=== PATIENT | female | born 1985 | race Caucasian/White ===

== ENCOUNTER 2023-06-30 05:50 | Day surgery (SDC) | payer OTHER ==
[~2023-06-30] VITALS: Ht 160 cm; Wt 68.9 kg
[2023-06-30 07:22] VITALS: O2SAT 98
[2023-06-30 07:24] LABS: HCG,QUAL RESULT NEGATIVE (NEGATIVE)
[2023-06-30] MEDS ORDERED: KETOROLAC TROMETHAMINE 30 MG VIAL ONE (07:54)
[2023-06-30] MEDS ORDERED: ROCURONIUM BROMIDE 10 MG/ML (ZEMURON) ONE (07:54)
[2023-06-30] MEDS ORDERED: OXYMETAZOLINE HCL 0.05% NASAL SPRAY NS ONE (07:54)
[2023-06-30] MEDS ORDERED: NS IRRIG SOLN 1000 ML IR ONE (07:54)
[2023-06-30] MEDS ORDERED: LIDOCAINE/EPI 1% 1:100000 20 ML VIAL ONE (07:54)
[2023-06-30] MEDS ORDERED: MUPIROCIN 2% TOPICAL OINTMENT 22 GM ONE (07:54)
[2023-06-30] MEDS ORDERED: DEXAMETHASONE SOD PHOSPHATE 4 MG/ML VIAL ONE (07:54)
[2023-06-30] MEDS ORDERED: SUCCINYLCHOLINE CHLORIDE 20 MG/ML(QUELICIN) ONE (07:54)
[2023-06-30] MEDS ORDERED: PHENYLEPHRINE HCL 10 MG/ML VIAL (NEOSYNEPHRINE) ONE (07:54)
[2023-06-30] MEDS ORDERED: LR 1,000 ML IV.SOLN IV ONE (07:54)
[2023-06-30] MEDS ORDERED: ONDANSETRON HCL 4 MG/2 ML VIAL ONE (07:54)
[2023-06-30] MEDS ORDERED: GLYCOPYRROLATE 0.2 MG/ML VIAL ONE (07:54)
[2023-06-30] MEDS ORDERED: PROPOFOL 200MG/ 20ML VIAL (DIPRIVAN) IV ONE (07:54)
[2023-06-30] MEDS ORDERED: METOCLOPRAMIDE HCL 10 MG/2 ML VIAL ONE (07:54)
[2023-06-30] MEDS ORDERED: SEVOFLURANE 15 MIN GAS INH ONE (07:54)
[2023-06-30] MEDS ORDERED: MIDAZOLAM HCL 2 MG/2 ML VIAL (VERSED) ONE ×2 (07:54→11:31)
[2023-06-30] MEDS ORDERED: ePHEDrine sulfate 50 MG/ML VIAL ONE (07:54)
[2023-06-30] MEDS ORDERED: WATER FOR IRRIGATION,STERILE 1,000 ML IRRIG.SOLN IR ONE (07:54)
[2023-06-30] MEDS ORDERED: NEOSTIGMINE METHYLSULFATE 1 MG/ML, 10 ML VIAL ONE (07:54)
[2023-06-30] MEDS ORDERED: fentaNYL CITRATE/PF 100 MCG/2 ML AMP ONE (07:54)
[2023-06-30] MEDS ORDERED: LR 500 ML IV SCH (09:00)
[2023-06-30] MEDS ORDERED: NALOXONE HCL 0.4 MG/ML AMP (NARCAN) IVP PRN (09:00)
[2023-06-30] MEDS ORDERED: MEPERIDINE HCL/PF 25 MG/ML DISP.SYRIN IVP PRN (09:00)
[2023-06-30] MEDS ORDERED: KETOROLAC TROMETHAMINE 30 MG VIAL IVP PRN (09:00)
[2023-06-30] MEDS ORDERED: LR 1,000 ML IV SCH (09:00)
[2023-06-30] MEDS ORDERED: ONDANSETRON HCL 4 MG/2 ML VIAL IVP PRN (09:00)
[2023-06-30] MEDS ORDERED: HYDROmorphone 1 MG/ML INJ. CARTRIDGE IVP PRN (09:00)
[2023-06-30] MEDS ORDERED: MIDAZOLAM HCL 2 MG/2 ML VIAL (VERSED) IVP PRN (11:30)
[2023-06-30 14:39] VITALS: BP_SYST 101; PULSE 75; RESP 17
== END 2023-06-30 15:00 | disposition home or self-care (01) ==
LOC: SDS 05:50 → SMU 05:50 → SDS 15:00
PROVIDERS: ATTEND Otolaryngology
DX: D38.5 Neoplasm of uncertain behavior of other respiratory organs (principal); J34.2 Deviated nasal septum; J33.9 Nasal polyp, unspecified; J30.1 Allergic rhinitis due to pollen; J32.4 Chronic pansinusitis; R22.0 Localized swelling, mass and lump, head; Z79.899 Other long term (current) drug therapy
CPT/HCPCS: 84703; 31255; 31240; 31298; 31256; 30140; 30520; J1100; J3490; J1885; J2765; J3465; J2710; J2405; J2370; J2704; J0330; J3010; J7120; 88304; 88305; 88311; C1787